=== PATIENT | male | born 1995 | race Caucasian/White ===

== ENCOUNTER 2018-02-24 13:22 | Emergency (ER) | payer OTHER ==
[2018-02-24] MEDS: SOD CHLORIDE 0.9% 1,000 ML IV (14:28)
== END 2018-02-24 15:14 | disposition home or self-care (01) ==
LOC: FTE 13:22
DX: F15.90 Other stimulant use, unspecified, uncomplicated (principal); F17.210 Nicotine dependence, cigarettes, uncomplicated
CPT/HCPCS: 96360; 99284-25

== ENCOUNTER 2018-03-28 05:34 | Emergency (ER) | payer OTHER ==
[2018-03-28] MEDS: ONDANSETRON (ODT) 4 MG TAB ODT (06:20)
== END 2018-03-28 07:07 | disposition home or self-care (01) ==
LOC: FTE 05:34
DX: R11.2 Nausea with vomiting, unspecified (principal); R19.7 Diarrhea, unspecified
CPT/HCPCS: 99283; Z7502

== ENCOUNTER 2018-04-06 00:27 | Emergency (ER) | payer SELFPAY, OTHER | END 2018-04-06 01:02 | disposition left against medical advice (07) | LOC: E/R 00:27 | DX: Z53.21 Procedure and treatment not carried out due to patient leaving prior to being seen by health care provider (principal) ==